=== PATIENT | female | born 1960 | race Caucasian/White ===

== ENCOUNTER → 2016-07-25 | Outpatient (CLI) | payer BC, OTHER ==
[2016-07-25 14:00] LABS: FREE T4 1.1 ng/dL (0.76-1.46); THYROID STIM HORMONE (TSH) 0.677 uIU/mL (0.358-3.740)
[2016-07-25 21:07] LABS: THYROPEROXIDASE ANTIBODY 7 IU/mL (0-34)
[2016-07-27 13:11] LABS: THYROGLOBULIN ANTIBODY 0.1 IU/mL (0.0-0.9)
== END | disposition home or self-care (01) ==
LOC: LAB 09:03
PROVIDERS: ATTEND Internal Medicine Endocrinology, Diabetes & Metabolism
DX: E04.1 Nontoxic single thyroid nodule (principal)
CPT/HCPCS: 36415; 84439; 84443; 86376; 86800

== ENCOUNTER → 2016-10-20 | Outpatient (CLI) | payer OTHER ==
[2016-10-21 14:11] LABS: FREE T4 0.99 ng/dL (0.76-1.46); THYROID STIM HORMONE (TSH) 3.245 uIU/mL (0.358-3.740)
== END | disposition home or self-care (01) ==
LOC: LAB 12:21
PROVIDERS: ATTEND Surgery
DX: Z00.00 Encounter for general adult medical examination without abnormal findings (principal); Z90.89 Acquired absence of other organs
CPT/HCPCS: 84439; 84443

== ENCOUNTER → 2016-12-07 | Outpatient (CLI) | payer OTHER ==
[2016-12-07 13:34] LABS: FREE T4 1.13 ng/dL (0.76-1.46); THYROID STIM HORMONE (TSH) 0.795 uIU/mL (0.358-3.740)
== END | disposition home or self-care (01) ==
LOC: LAB 08:42
PROVIDERS: ATTEND Family Medicine
DX: E03.9 Hypothyroidism, unspecified (principal)
CPT/HCPCS: 36415; 84439; 84443; 84480

== ENCOUNTER → 2017-03-20 | Outpatient (CLI) | payer OTHER ==
--- NOTE | 2017-03-20 15:07 | RAD ---
DATE: 03/20/2017 EXAM: MAMMO EMIL SCREENING BILATERAL HISTORY: Routine screening. COMPARISON: 03/15/2016 and 02/03/2015. This study was interpreted with the benefit of Computerized Aided Detection (CAD). FINDINGS: The macrolobulated mass in the retroareolar slightly upper outer aspect of the right breast appears stable. No new mass or malignant appearing microcalcifications are seen. Biopsy clip in the posterior right breast is seen. No malignant-appearing microcalcifications are seen. The axillae are unremarkable. Breast Density: SCATTERED The breast parenchyma shows scattered fibroglandular densities. Breast parenchyma level B. IMPRESSION: Stable mammogram. No mammographic features suspicious for malignancy are identified. BI-RADS CATEGORY: 2 BENIGN FINDING(S) RECOMMENDED FOLLOW-UP: 12M 12 MONTH FOLLOW-UP PQRS compliance statement: Patient information was entered into a reminder system with a target due date 03/20/2018 for the next mammogram. Mammography is a sensitive method for finding small breast cancers, but it does not detect them all and is not a substitute for careful clinical examination. A negative mammogram does not negate a clinically suspicious finding and should not result in delay in biopsying a clinically suspicious abnormality. "Our facility is accredited by the [employer] Mammography [employer]."
== END | disposition home or self-care (01) ==
LOC: MAMMO 13:08
PROVIDERS: ATTEND Obstetrics & Gynecology
DX: Z12.31 Encounter for screening mammogram for malignant neoplasm of breast (principal)
CPT/HCPCS: 77063; G0202; 77067

== ENCOUNTER → 2017-06-13 | Outpatient (CLI) | payer OTHER ==
[2017-06-13 21:04] LABS: FREE T4 1.15 ng/dL (0.76-1.46); THYROID STIM HORMONE (TSH) 0.678 uIU/mL (0.358-3.740)
== END | disposition home or self-care (01) ==
LOC: LAB 06-12 12:55
PROVIDERS: ATTEND Family Medicine
DX: E89.0 Postprocedural hypothyroidism (principal)
CPT/HCPCS: 84439; 84443

== ENCOUNTER → 2017-12-12 | Outpatient (CLI) | payer OTHER ==
[2017-12-12 10:27] LABS: BASO # 0.1 x10^3/uL (0.0-0.2); BASO % 1 % (0-3); EOS % 1 % (0-3); HEMATOCRIT 43.4 % (36.0-47.0); HEMOGLOBIN 14.5 g/dL (12.0-15.5); LYMPH # 1.1 x10^3/uL (1.0-4.8); LYMPH % 23 % (24-48); MEAN CORPUSCULAR HEMOGLOBIN 32 pg (25-35); MEAN CORPUSCULAR HGB CONC 33 g/dL (31-37); MEAN CORPUSCULAR VOLUME 95 fL (79-100); MONO # 0.3 x10^3/uL (0.0-1.1); MONO % 7 % (0-9); NEUT # 3.1 x10^3uL (1.8-7.7); NEUT % 67 % (31-73); PLATELET COUNT 221 x10^3/uL (140-400); RED BLOOD COUNT 4.58 x10^6/uL (3.50-5.40); RED CELL DISTRIBUTION WIDTH 12.6 % (11.5-14.5); WHITE BLOOD COUNT 4.6 x10^3/uL (4.0-11.0)
[2017-12-12 10:39] LABS: ALBUMIN 3.9 g/dL (3.4-5.0); ALBUMIN/GLOBULIN RATIO 1.1 (1.0-1.7); CALCIUM 9.3 mg/dL (8.5-10.1); CREATININE 0.9 mg/dL (0.6-1.0); GFR 64.1; TOTAL BILIRUBIN 0.4 mg/dL (0.2-1.0); TOTAL PROTEIN 7.4 g/dL (6.4-8.2)
[2017-12-12 14:58] LABS: FREE T4 1.12 ng/dL (0.76-1.46); THYROID STIM HORMONE (TSH) 0.953 uIU/mL (0.358-3.740)
== END | disposition home or self-care (01) ==
LOC: LAB 09:57
PROVIDERS: ATTEND Family Medicine
DX: Z00.00 Encounter for general adult medical examination without abnormal findings (principal); E03.8 Other specified hypothyroidism; Z85.3 Personal history of malignant neoplasm of breast; Z90.89 Acquired absence of other organs
CPT/HCPCS: 36415; 80053; 80061; 84439; 84443; 85025

== ENCOUNTER → 2017-12-26 | Outpatient (CLI) | payer OTHER ==
[2017-12-26 10:10] LABS: FECAL OB PT NEGATIVE (NEG)
== END | disposition home or self-care (01) ==
LOC: LAB 09:23
PROVIDERS: ATTEND Family Medicine
DX: Z12.12 Encounter for screening for malignant neoplasm of rectum (principal); E03.9 Hypothyroidism, unspecified; Z85.3 Personal history of malignant neoplasm of breast
CPT/HCPCS: 82274

== ENCOUNTER → 2018-03-26 | Outpatient (CLI) | payer OTHER ==
--- NOTE | 2018-03-26 16:24 | RAD ---
DATE: 03/26/2018 EXAM: MAMMO EMIL SCREENING BILATERAL HISTORY: Routine screening COMPARISON: 03/20/2017 This study was interpreted with the benefit of Computerized Aided Detection (CAD). Breast Density: SCATTERED The breast parenchyma shows scattered fibroglandular densities. Breast parenchyma level B. FINDINGS: 2-D and 3-D tomosynthesis imaging was performed in CC and MLO projections. A biopsy clip is again noted laterally in the right breast. There is a smooth nodule in the anterior aspect of the right breast at approximately 10:00 location. It measures approximately 21 mm in greatest diameter. There has been little if any change since the 2016 study, however, it has slowly increased in size since older studies, measuring approximately 15 mm in 2014. There is a tiny 3-4 mm nodule in the inferomedial left breast anteriorly in the periareolar region. This appears to be unchanged. No other new or enlarging breast densities are seen. Scattered benign type calcifications are present. No suspicious microcalcifications have developed. IMPRESSION: 1. The right lateral breast nodule has shown no definite change since 2016, but has slowly increased in size since 2014. Sonographic evaluation is suggested. 2. Otherwise stable mammograms. BI-RADS CATEGORY: 0 INCOMPLETE: NEEDS ADDITIONAL IMAGING EVALUATION AND/OR PRIOR MAMMOGRAMS FOR COMPARISON. RECOMMENDED FOLLOW-UP: ADD ADDITIONAL IMAGING PQRS compliance statement: Patient information was entered into a reminder system with a target due date for the next mammogram. Mammography is a sensitive method for finding small breast cancers, but it does not detect them all and is not a substitute for careful clinical examination. A negative mammogram does not negate a clinically suspicious finding and should not result in delay in biopsying a clinically suspicious abnormality. "Our facility is accredited by the [employer] Mammography [employer]."
== END | disposition home or self-care (01) ==
LOC: MAMMO 14:38
PROVIDERS: ATTEND Obstetrics & Gynecology
DX: Z12.31 Encounter for screening mammogram for malignant neoplasm of breast (principal); N63.11 Unspecified lump in the right breast, upper outer quadrant
CPT/HCPCS: 77063; 77067

== ENCOUNTER → 2018-03-28 | Outpatient (CLI) | payer OTHER ==
--- NOTE | 2018-03-28 10:40 | RAD ---
Right breast ultrasound, 03/28/2018: History: Enlarging breast nodule A targeted ultrasound exam of the right breast was performed at the 10:00 location. Approximately 3 cm from the nipple there is a oval shaped subcutaneous nodule as also noted on a study from 01/10/2014. This is complex nodule with predominantly solid components and smaller cystic components. Its margins are smooth. It is wider than tall. It measures 19 x 20 x 12 mm compared to a maximum measurement of 15 mm on the previous study. While this may be a slowly growing fibroadenoma, a circumscribed malignancy cannot be excluded. IMPRESSION: Enlarging solid right breast nodule as described above. Ultrasound-guided biopsy is suggested for further evaluation. Note: The patient was informed of these findings by the cytotechnologist at the time of exam. She understands the recommendation for biopsy and will follow-up with the ordering physician. BI-RADS 4-suspicious abnormality.
== END | disposition home or self-care (01) ==
LOC: US 08:12
PROVIDERS: ATTEND Obstetrics & Gynecology
DX: N63.11 Unspecified lump in the right breast, upper outer quadrant (principal)
CPT/HCPCS: 76641